=== PATIENT | female | born 1950 | race Caucasian/White ===

== ENCOUNTER → 2016-08-28 | Outpatient (CLI) | payer MEDICARE ==
[~2016-08-28] MED LIST: ATENOLOL50 MG PO; CALCIUM 600 + D1 TA1 PO; CRESTOR PO; DICLOFENAC PO; FISH OIL 1,2001 EAC2 PO; LATANOPROST2.5 ML OD; LEVOTHYROXINE25 MCG PO; LISINOPRIL PO; LOSARTAN POTASS25 MG PO; MULTIPLE VITAMI1 T11 PO; MULTIVITAMIN W-1 TAB PO; OSTEO BI-FLEX1 EAC3 PO; OXAPROZIN600 MG; OXAPROZIN600 MG PO; OYSTER CALCIUM500 MG PO; VIT E PO
== END | disposition home or self-care (01) ==
LOC: CRC 09:23
DX: R91.8 Other nonspecific abnormal finding of lung field (principal)
CPT/HCPCS: 94060; 94726; 94729